=== PATIENT | female | born 1950 | race Caucasian/White ===

== ENCOUNTER → 2021-05-06 | Outpatient (CLI) | payer MEDICARE | LOC: NM 09:00 → ECHO 11:00 → NM 13:00 | DX: I20.8 Other forms of angina pectoris (principal); R06.02 Shortness of breath | CPT/HCPCS: ECHO; 78452; 93017; 93306; A9502; J2785 ==

== ENCOUNTER → 2021-06-22 | Outpatient (CLI) | payer MEDICARE | LOC: MAMO 10:46 | DX: Z12.31 Encounter for screening mammogram for malignant neoplasm of breast (principal); Z80.3 Family history of malignant neoplasm of breast | CPT/HCPCS: 77063; 77067 ==

== ENCOUNTER → 2021-10-23 | Outpatient (CLI) | payer MEDICARE ==
[2021-10-23 12:50] LABS: HEMOGLOBIN 14.1 gm/dl (12.3-15.3); RED BLOOD COUNT 4.55 M/UL (4.00-5.10); WHITE BLOOD COUNT 6.5 K/UL (4.5-11.0)
[2021-10-23 13:23] LABS: BUN/CREATININE RATIO 18 (0-10)
[2021-10-24 13:13] LABS: TREPONEMA PALLIDUM ANTIBODIES Non Reactive (Non Reactive)
[2021-10-26 02:11] LABS: ANTI-DSDNA ANTIBODIES 5 IU/mL (0-9)
[2021-10-26 14:11] LABS: ANGIOTENSIN-CONVERTING ENZYME 28 U/L (14-82)
[2021-10-27 08:14] LABS: T PALLIDUM AB (FTA-AB) Non Reactive (Non Reactive)
[2021-10-27 13:14] LABS: B. HENSELAE IGG Negative titer (Neg:<1:320); B. HENSELAE IGM Negative titer (Neg:<1:100); B. QUINTANA IGG Negative titer (Neg:<1:320); B. QUINTANA IGM Negative titer (Neg:<1:100)
[2021-10-27 16:14] LABS: QUANTIFERON MITOGEN VALUE >10.00 IU/mL (.); QUANTIFERON NIL VALUE 0.04 IU/mL (.); QUANTIFERON TB1 AG VALUE 0.05 IU/mL (.); QUANTIFERON TB2 AG VALUE 0.04 IU/mL (.); QUANTIFERON-TB GOLD PLUS Negative (Negative)
== END ==
LOC: LAB 12:04
PROVIDERS: Ophthalmology Retina Specialist
DX: H30.92 Unspecified chorioretinal inflammation, left eye (principal)
CPT/HCPCS: 36415; 80048; 82164; 85025; 85549; 85652; 86038; 86140; 86225; 86611; 86644; 86694; 86695; 86696; 86777; 86778; 86780; 87798

== ENCOUNTER → 2021-10-27 | Outpatient (CLI) | payer MEDICARE | LOC: LAB 11:44 | DX: H30.92 Unspecified chorioretinal inflammation, left eye (principal) | CPT/HCPCS: 36415 ==

== ENCOUNTER → 2022-06-25 | Outpatient (CLI) | payer MEDICARE | LOC: MAMO 13:00 | DX: Z12.31 Encounter for screening mammogram for malignant neoplasm of breast (principal); Z85.3 Personal history of malignant neoplasm of breast; Z98.890 Other specified postprocedural states | CPT/HCPCS: 77063; 77067 ==

== ENCOUNTER → 2022-07-07 | Outpatient (CLI) | payer MEDICARE | LOC: HEART 5 08:00 | DX: I73.9 Peripheral vascular disease, unspecified (principal) ==

== ENCOUNTER → 2022-07-22 | Outpatient (CLI) | payer MEDICARE | LOC: MAMO 07-21 10:30 | DX: R92.8 Other abnormal and inconclusive findings on diagnostic imaging of breast (principal); Z85.3 Personal history of malignant neoplasm of breast | CPT/HCPCS: 76641; 77065; G0279 ==